=== PATIENT | female | born 1940 | race Hispanic/Latino ===

== ENCOUNTER → 2022-09-02 | Outpatient (CLI) | payer OTHER, MEDICARE ==
[~2022-09-02] MED LIST: AMLO-257 PO; CETI-89 PO; LOSA25TA41 PO; METF-444 PO; ROSU10TA22 PO
== END | disposition home or self-care (01) ==
LOC: SHCH 11:02
PROVIDERS: ATTEND Internal Medicine Cardiovascular Disease
DX: I07.1 Rheumatic tricuspid insufficiency (principal); R06.09 Other forms of dyspnea
CPT/HCPCS: 93306

== ENCOUNTER → 2023-09-10 | Outpatient (CLI) | payer OTHER, MEDICARE | END | disposition home or self-care (01) | LOC: SHCH 13:40 | PROVIDERS: ATTEND Internal Medicine Cardiovascular Disease | DX: I27.20 Pulmonary hypertension, unspecified (principal); I07.1 Rheumatic tricuspid insufficiency; I10 Essential (primary) hypertension; E11.9 Type 2 diabetes mellitus without complications; E78.5 Hyperlipidemia, unspecified | CPT/HCPCS: 93306 ==

== ENCOUNTER → 2023-09-14 | Outpatient (CLI) | payer OTHER, MEDICARE ==
[~2023-09-14] MED LIST changes: +REGADENOSON 0.4 MG/5 ML PF SYG IVP ONE
== END | disposition home or self-care (01) ==
LOC: SHCH 07:42
PROVIDERS: ATTEND Internal Medicine Cardiovascular Disease
DX: I20.9 Angina pectoris, unspecified (principal); R94.39 Abnormal result of other cardiovascular function study
CPT/HCPCS: 78452; 93017; J2785; A9500 ×2; 96374

== ENCOUNTER → 2024-06-22 | Outpatient (CLI) | payer MEDICARE, OTHER ==
[~2024-06-22] MED LIST changes: -REGADENOSON 0.4 MG/5 ML PF SYG IVP ONE
== END | disposition home or self-care (01) ==
LOC: SHCH 07:37
PROVIDERS: ATTEND Internal Medicine Cardiovascular Disease
DX: I70.293 Other atherosclerosis of native arteries of extremities, bilateral legs (principal); I87.1 Compression of vein; I87.2 Venous insufficiency (chronic) (peripheral)
CPT/HCPCS: 93925; 93970